=== PATIENT | female | born 1985 ===

== ENCOUNTER → 2018-06-11 19:41 | Outpatient (REF) | payer OTHER, MEDICAID, SELFPAY ==
[2018-06-11 20:52] LABS: C-Reactive Protein Quant < 0.5 mg/dL (<1.0)
[2018-06-11 20:57] LABS: Erythrocyte Sedimentation Rate 5 MM/HR (0-20)
[2018-06-14 14:56] LABS: Anti-Streptolysin O Antibody 56 IU/mL (< 200)
== END ==
LOC: LAB 19:41
PROVIDERS: Visit Provider Naturopath
DX: J02.0 Streptococcal pharyngitis (principal); M25.50 Pain in unspecified joint
CPT/HCPCS: 85651; 86060; 86140; 86255